=== PATIENT | male | born 1995 | race Caucasian/White ===

== ENCOUNTER 2017-02-19 15:10 | Outpatient (CLI) | payer OTHER ==
[2017-02-19 16:55] LABS: Free T4 (Free Thyroxine) 1.25 ng/dL (0.70-1.48); Thyroid Stimulating Hormone 0.5218 uIU/mL (0.35-4.94)
== END 2017-02-19 15:11 | disposition home or self-care (01) ==
LOC: MADLAB 15:10
PROVIDERS: ATTEND Internal Medicine Endocrinology, Diabetes & Metabolism
DX: C73 Malignant neoplasm of thyroid gland (principal); E89.0 Postprocedural hypothyroidism
CPT/HCPCS: 36415; 84432; 84439; 84443; 86800